=== PATIENT | female | born 1955 | race Caucasian/White ===

== ENCOUNTER 2017-01-17 13:14 | Day surgery (SDC) | payer MEDICAID ==
--- NOTE | 2017-01-17 11:41 | CP.SDSHP ---
Same Day Surgery H & P - History Proposed Procedure: colonoscopy - Date & Time Date: 01/17/17 Time: 11:40 Short Stay Discharge - Short Stay Discharge Admitting Diagnosis/Reason for Visit: SCREENING Disposition: HOME/ ROUTINE
[2017-01-17] MEDS ORDERED: Midazolam 2 MG/2 ML VIAL ONE (13:20)
[2017-01-17] MEDS ORDERED: Propofol 10 mg/ml Inj (20 ML) ONE (13:20)
[2017-01-17 14:47] VITALS: TEMP 98.7
[2017-01-17 15:18] VITALS: BP 132/61; PULSE 72; RESP 19; O2SAT 100
== END 2017-01-17 15:18 | disposition home or self-care (01) ==
LOC: C.ENDO 13:14
PROVIDERS: ATTEND Colon & Rectal Surgery
DX: K62.0 Anal polyp (principal); K62.1 Rectal polyp; K64.8 Other hemorrhoids
CPT/HCPCS: 45388; 88305; 88342; J2001; J2250; J2704

== ENCOUNTER 2017-02-17 10:50 | Day surgery (SDC) | payer MEDICAID ==
[2017-02-06 14:57] VITALS: BMI 18.8
--- NOTE | 2017-02-17 11:56 | CP.SDSHP ---
Same Day Surgery H & P - History Proposed Procedure: Transanal excision of anorectal lesion - Previous Medical/Surgical History Cardiac: Hypertension - Allergies Allergies: Allergies No Known Allergies Allergy (Verified 01/17/17 13:30) - Date & Time Date: 02/17/17 Time: 11:55 Short Stay Discharge - Short Stay Discharge Admitting Diagnosis/Reason for Visit: RECTAL POLYP Disposition: HOME/ ROUTINE
[2017-02-17 12:07] LABS: BASO % 0.6 % (0.0-2.0); EOS % 0.7 % (0.0-4.0); HEMOGLOBIN 10.4 g/dL (11.0-16.0); LYMPH % 30.1 % (20.0-40.0); MEAN CELL VOLUME 85.5 fL (81.0-99.0); MEAN CORPUSCULAR HEMOGLOBIN 27.7 pg (27.0-31.0); MEAN CORPUSCULAR HGB CONC 32.4 g/dL (33.0-37.0); MEAN PLATELET VOLUME 9.7 fL (7.2-11.7); MONO # 0.3 K/uL (0.0-0.8); MONO % 8.2 % (0.0-10.0); NEUT # 2.1 K/uL (1.8-7.0); NEUT % 60.4 % (50.0-75.0); RBC 3.75 Mil/uL (3.80-5.20); RED CELL DISTRIBUTION WIDTH 15.2 % (11.5-14.5); WHITE BLOOD COUNT 3.5 K/uL (4.8-10.8)
[2017-02-17] MEDS ORDERED: Bupivacaine-Epi 0.5%-1:200,000 PF Inj ONE (12:08)
[2017-02-17] MEDS ORDERED: Ciprofloxacin 400mg/200ml D5W 400 MG/200 ML BAG IVPB ONE (12:08)
[2017-02-17] MEDS ORDERED: Propofol 10 mg/ml Inj (20 ML) ONE (12:10)
[2017-02-17] MEDS ORDERED: Midazolam 2 MG/2 ML VIAL ONE (12:10)
[2017-02-17] MEDS ORDERED: Lactated Ringer's 1,000 ML IV ONE (12:12)
[2017-02-17] MEDS ORDERED: HYDROmorphone 0.5 mg/0.5 ml ISec IVP PRN (13:00)
--- NOTE | 2017-02-17 13:05 | PCM.SURG1 ---
Surgeon's Initial Post Op Note - Surgeon's Notes Surgeon: Dr. 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
[2017-02-17 15:21] VITALS: BP 120/68; PULSE 66; RESP 18; TEMP 97.8; O2SAT 99
[2017-02-17] MEDS ORDERED: Tramadol 25 mg PO SCH (18:00)
--- NOTE | 2017-02-19 14:16 | CARD ---
APPROVED REPORT EKG Measurement Heart [id number] <Conclusion> Normal sinus rhythm Normal ECG
== END 2017-02-17 15:27 | disposition home or self-care (01) ==
LOC: C.SDS 10:50
PROVIDERS: ATTEND Colon & Rectal Surgery
DX: C7A.026 Malignant carcinoid tumor of the rectum (principal); I10 Essential (primary) hypertension; R51 Headache; Z98.890 Other specified postprocedural states
CPT/HCPCS: 36415; 45171; 85025; 88305; 93005; J0744; J1170; J1885; J2250; J2405; J2704; J3010; J7120